=== PATIENT | female | born 2000 | race Caucasian/White ===

== ENCOUNTER 2020-08-20 13:37 | Outpatient (CLI) | payer OTHER ==
[2020-08-20 16:00] LABS: HEMOGLOBIN 10.1 gm/dl (12.3-15.3); RED BLOOD COUNT 3.84 M/UL (4.00-5.10); WHITE BLOOD COUNT 7.2 K/UL (4.5-11.0)
[2020-08-20 16:34] LABS: BUN/CREATININE RATIO 21 (0-10)
== END 2020-08-20 22:14 | disposition home or self-care (01) ==
LOC: GENOP 13:37
PROVIDERS: Obstetrics & Gynecology
DX: O46.90 Antepartum hemorrhage, unspecified, unspecified trimester (principal); O26.899 Other specified pregnancy related conditions, unspecified trimester; R10.30 Lower abdominal pain, unspecified; R10.2 Pelvic and perineal pain; Z3A.00 Weeks of gestation of pregnancy not specified
CPT/HCPCS: 36415; 59025; 80053; 80307; 81001; 82247; 82248; 83615; 84550; 85025; 85379; 85384; 85610; 85730; 96360; 96361; 96365; 96368; J0696; J7120

== ENCOUNTER 2020-08-25 00:34 | Outpatient (CLI) | payer OTHER ==
[2020-08-25 01:47] LABS: HEMOGLOBIN 9.4 gm/dl (12.3-15.3); RED BLOOD COUNT 3.53 M/UL (4.00-5.10); WHITE BLOOD COUNT 6.3 K/UL (4.5-11.0)
== END 2020-08-25 04:05 ==
LOC: GENOP 00:34
PROVIDERS: Obstetrics & Gynecology
DX: O14.13 Severe pre-eclampsia, third trimester (principal); O13.9 Gestational [pregnancy-induced] hypertension without significant proteinuria, unspecified trimester; Z3A.30 30 weeks gestation of pregnancy
CPT/HCPCS: 36415; 81001; 82247; 82248; 82565; 82570; 84156; 84450; 84460; 84550; 85025; 85379; 85384; 85610; 85730; 96365; 96366; 96368; 96372; 96374; 96375; J0360; J0610; J0702; J2405; J3475; J7120